=== PATIENT | male | born 1995 | race American Indian/Alaskan Native ===

== ENCOUNTER 2017-01-01 00:14 | Emergency (ER) | payer OTHER ==
--- NOTE | 2017-01-01 03:00 | XRay Report ---
FINAL REPORT EXAM: XR HAND 3+V RT HISTORY: Impact, pain to 5th distal metacarpal COMPARISON: None available. FINDINGS: Four views of the right hand obtained. There is an oblique fracture through the 5th metacarpal neck with volar angulation of distal fracture segment. Joint spaces are preserved. Remaining bony structures are intact. IMPRESSION: Fifth metacarpal neck fracture.
[2017-01-01] MEDS ORDERED: TORADOL IM ONE (05:32)
[2017-01-01] MEDS ORDERED: NORCO 10/325 PO ONE (05:32)
[2017-01-01] MEDS ORDERED: TORADOL ONE (05:56)
--- NOTE | 2017-01-01 06:07 | Emergency Department Report ---
Upper Extremity - [facility] Chief Complaint: Extremity Injury, Upper Stated Complaint: HAND LAC ED Review of Systems ROS: Stated complaint: HAND LAC Other details as noted in HPI ED Past Medical Hx - Past Medical History Previous Medical History?: No - Surgical History Past Surgical History?: No - Social History Smoking Status: Never Smoker Substance Use Type: None - Medications Home Medications: Home Medications Medication Instructions Recorded Confirmed Last Taken Type HYDROcodone/APAP 7.5-325 [[place] 1 each PO Q8HR #15 tablet 01/01/17 Unknown Rx 7.5/325] Upper Extremity Exam - Exam General: Vital signs noted. No distress. Alert and acting appropriately. ED Course Vital Signs 01/01/17 01:25 Temperature 98.5 F Pulse Rate 110 H Respiratory 18 Rate Blood Pressure 142/93 [Right] O2 Sat by Pulse 99 Oximetry Critical care attestation.: If time is entered above; I have spent that time in minutes in the direct care of this critically ill patient, excluding procedure time. ED Disposition Condition: Stable Prescriptions: HYDROcodone/APAP 7.5-325 [[place] 7.5/325] 1 each PO Q8HR #15 tablet Referrals: PRIMARY CARE, [Primary Care Provider] - 3-5 Days
[2017-01-01] MEDS ORDERED: TRIPLE ANTIBIOTIC TP ONE ×2 (06:22→06:24)
[2017-01-01 07:11] VITALS: BP 151/72
== END 2017-01-01 07:11 | disposition home or self-care (01) ==
LOC: ED 00:14
DX: S61.419A Laceration without foreign body of unspecified hand, initial encounter (principal); W45.8XXA Other foreign body or object entering through skin, initial encounter; Y93.89 Activity, other specified; Y99.9 Unspecified external cause status; Y92.89 Other specified places as the place of occurrence of the external cause
CPT/HCPCS: 29105; 73130; 96372; 99283; J1885; A6250